=== PATIENT | female | born 1980 | race Caucasian/White ===

== ENCOUNTER 2018-06-25 03:12 | Inpatient (IN) | payer BC ==
[2018-06-25] MEDS ORDERED: Carboprost 250 MCG/ML AMP IM PRN (03:33)
[2018-06-25] MEDS ORDERED: Misoprostol 200 MCG TAB PR PRN (03:33)
[2018-06-25] MEDS ORDERED: NS / Oxytocin 40 units/1000ml 1,000 ML IV PRN (03:33)
[2018-06-25] MEDS ORDERED: HYDROcodone/Acetaminophen 5/325 mg Tablet PO PRN ×4 (03:33→10:21)
[2018-06-25] MEDS ORDERED: Ibuprofen 800 MG TAB PO PRN (03:33)
[2018-06-25] MEDS ORDERED: Promethazine HCl 25 MG/ML VIAL IM PRN (03:33)
[2018-06-25] MEDS ORDERED: Ondansetron HCl/PF 4 MG/2 ML Vial IVP PRN (03:33)
[2018-06-25] MEDS ORDERED: Diphenoxylate HCl/Atropine Tablet PO PRN ×2 (03:33)
[2018-06-25] MEDS ORDERED: Lactated Ringer's 1,000 ML IV PRN (03:33)
[2018-06-25] MEDS ORDERED: Lidocaine 1% (PF) 30 ML VIAL SC PRN (03:33)
[2018-06-25] MEDS ORDERED: Methylergonovine 0.2 MG/ML VIAL IM PRN (03:33)
[2018-06-25 04:01] VITALS: BMI 23.7
[2018-06-25 04:09] LABS: Hemoglobin 12.7 g/dL (12.0-16.0); Mean Corpuscular HGB CONC 36.4 g/dL (32.0-36.0); Mean Corpuscular Hemoglobin 34.2 pg (27.0-31.0); Mean Platelet Volume 8.5 fL (7.4-10.4); Platelet Count 195 thou/uL (130-400); RBC Distribution Width 11.6 % (11.5-14.5); Red Blood Cell (RBC) Count 3.71 mill/uL (4.20-5.40); White Blood Cell (WBC) Count 8.6 thou/uL (4.8-10.8)
[2018-06-25 04:47] LABS: HBSAg Index 0.22 S/CO (0-0.99); Hep B Surf Ag Non-Reactive S/CO (NonReactive)
[2018-06-25 05:25] LABS: Syphilis Antibody Nonreactive (Nonreactive); Syphilis Antibody Index 0.03 S/CO (<1.00 Non-Reactive)
--- NOTE | 2018-06-25 06:41 | PDOC.LDHP ---
Labor and Delivery H&P Allergies/Adverse Reactions: Allergies Allergy/AdvReac Type Severity Reaction Status Date / Time No Allergy Information Allergy Verified 06/25/18 04:04 Available
--- NOTE | 2018-06-25 06:42 | PDOC.OPDEL ---
OB Operative/Delivery Note Delivery Dr/Surgeon: Light Pre-Delivery Diagnosis: active labor Weeks gestation: 41 Anesthesia: none - Findings A Sex: male - 1 min: 8 - 5 min: 9 - Additional Findings/Plan Placenta delivered: spontaneous Repaired Obstetrical Laceration: none Estimated blood loss: 150ml see nurse note for qualitative blood loss Post delivery plan: routine recovery
[2018-06-25] MEDS ORDERED: Prenatal Vitamin 1 TAB PO SCH ×2 (10:21→10:45)
[2018-06-25] MEDS ORDERED: Docusate Calcium (SURFAK) 240 MG CAP PO SCH ×2 (10:21→10:45)
[2018-06-25] MEDS ORDERED: Misoprostol 200 MCG TAB VAG PRN (10:21)
[2018-06-25] MEDS ORDERED: Bisacodyl 10 MG SUPP PR PRN (10:21)
[2018-06-25] MEDS ORDERED: Adacel (T-DAP) 0.5 ML VIAL IM ONE (10:21)
[2018-06-25] MEDS ORDERED: Ferrous Sulfate 325 MG TAB PO SCH ×2 (10:21→10:45)
[2018-06-25] MEDS ORDERED: Milk Of Magnesia 30 ML UDCUP PO PRN (10:21)
[2018-06-25] MEDS ORDERED: NS / Oxytocin 40 units/1000ml 1,000 ML IV SCH (10:21)
[2018-06-25] MEDS ORDERED: Benzocaine/Menthol 20-0.5% 60 ML CAN TOP PRN (10:21)
[2018-06-25] MEDS: Ibuprofen 800 MG TAB PO SCH ×2 (14:17→21:01)
[2018-06-25] MEDS: Ferrous Sulfate 325 MG TAB PO SCH (15:34)
[2018-06-25] MEDS: Docusate Calcium (SURFAK) 240 MG CAP PO SCH (20:41)
[2018-06-26] MEDS: Ibuprofen 800 MG TAB PO SCH ×2 (06:17→14:44)
[2018-06-26 08:02] VITALS: BP 93/55; TEMP 98.2
[2018-06-26] MEDS: Docusate Calcium (SURFAK) 240 MG CAP PO SCH (08:51)
[2018-06-26] MEDS: Ferrous Sulfate 325 MG TAB PO SCH ×2 (08:51→17:59)
[2018-06-26] MEDS ORDERED: Prenatal Vitamin 1 TAB PO SCH (09:00)
== END 2018-06-26 18:15 | disposition home or self-care (01) | DRG 775 ==
LOC: L&D/OP 03:12 → L&D-LIB 04:01 → 3SE 11:25
PROVIDERS: ADMIT Student in an Organized Health Care Education/Training Program; ATTEND Student in an Organized Health Care Education/Training Program
PROC: 10E0XZZ Delivery of Products of Conception, External Approach (ICD-10-PCS; principal; 2018-06-25)
DX: O48.0 Post-term pregnancy (principal); Z3A.41 41 weeks gestation of pregnancy; Z37.0 Single live birth
CPT/HCPCS: 36415; 85027; 86780; 86850; 86900; 86901; 87340; A4216; J2001